=== PATIENT | female | born 1995 | race Caucasian/White ===

== ENCOUNTER 2017-11-26 17:26 | Emergency (ER) | payer OTHER, SELFPAY | END 2017-11-26 18:20 | disposition home or self-care (01) | LOC: MADERS 17:26 | DX: J02.9 Acute pharyngitis, unspecified (principal); F17.210 Nicotine dependence, cigarettes, uncomplicated; Z79.899 Other long term (current) drug therapy | CPT/HCPCS: 87081; 87430; 99283 ==